=== PATIENT | female | born 1980 | race Caucasian/White ===

== ENCOUNTER 2024-11-24 08:00 | Emergency (ER) | payer MEDICAID ==
[~2024-11-24] VITALS: Ht 162.6 cm; Wt 81.0 kg
[2024-11-24 08:06] VITALS: BP 189/87; TEMP 36.9; O2SAT 100
[2024-11-24 08:07] VITALS: PULSE 86; RESP 18; O2SAT 99
[2024-11-24 08:39] LABS: CLARITY URINE CLOUDY (CLEAR); COLOR URINE YELLOW (YELLOW); GLUCOSE URINE NEGATIVE (NEGATIVE); KETONES URINE TRACE (NEGATIVE); OCCULT BLOOD URINE 1+ (NEGATIVE); PH URINE 6.5 (4.5-8.0); PROTEIN URINE TRACE (NEGATIVE); SPECIFIC GRAVITY URINE 1.024 (1.005-1.030)
[2024-11-24 08:40] LABS: LEUKOCYTE ESTERASE URINE 3+ (NEGATIVE); NITRITE URINE POSITIVE (NEGATIVE); UROBILINOGEN URINE 1.0 E.U./dL (0.2-1.0)
[2024-11-24 08:54] LABS: SQUAMOUS EPITHELIAL CELL URINE 2+ /lpf (RARE/1+); WBC URINE TNTC /hpf (0-2)
[2024-11-24 08:55] LABS: BACTERIA URINE 4+
[2024-11-24] MEDS ORDERED: CEPH500C2 MT (08:55)
[2024-11-24] MEDS: PHENAZOPYRIDINE HCL 100MG TABLET PO ONE (09:11)
[2024-11-24] MEDS: CEPHALEXIN 250MG CAPSULE PO ONE (09:11)
== END 2024-11-24 09:17 | disposition home or self-care (01) ==
LOC: ER 08:00
DX: N39.0 Urinary tract infection, site not specified (principal); I10 Essential (primary) hypertension; Z88.2 Allergy status to sulfonamides; Z88.1 Allergy status to other antibiotic agents
CPT/HCPCS: 81003; 81025; 87077; 87186; 99283

== ENCOUNTER 2025-01-25 14:09 | Emergency (ER) | payer MEDICAID, BC ==
[~2025-01-25] VITALS: Ht 162.6 cm; Wt 84.0 kg
[~2025-01-25 14:09] MED LIST: CEPH500C2 MT
[2025-01-25 14:40] VITALS: O2SAT 99
[2025-01-25 15:09] LABS: CLARITY URINE CLEAR (CLEAR); COLOR URINE YELLOW (YELLOW); GLUCOSE URINE NEGATIVE (NEGATIVE); KETONES URINE TRACE (NEGATIVE); LEUKOCYTE ESTERASE URINE 2+ (NEGATIVE); NITRITE URINE NEGATIVE (NEGATIVE); OCCULT BLOOD URINE NEGATIVE (NEGATIVE); PH URINE 6.0 (4.5-8.0); PROTEIN URINE NEGATIVE (NEGATIVE); SPECIFIC GRAVITY URINE 1.026 (1.005-1.030); UROBILINOGEN URINE 1.0 E.U./dL (0.2-1.0)
[2025-01-25 15:43] LABS: BASOPHILS % 0.8 % (0.0-2.0); EOSINOPHILS % 2.0 % (0.0-5.0); HEMATOCRIT. 26.8 % (36.0-48.0); HEMOGLOBIN. 7.5 g/dL (12.0-16.0); LYMPHOCYTES % 26.8 % (20.0-50.0); MEAN PLATELET VOLUME 8.8 fl (7.4-10.4); MONOCYTES % 5.8 % (2.0-8.0); NEUTROPHILS % 64.6 % (40.0-76.0); PLATELET 331 x1000/uL (130-400); RED BLOOD CELL COUNT 4.57 mill/uL (4.2-5.4); RED CELL DISTRIBUTION WIDTH 20.2 % (11.6-14.6)
[2025-01-25 15:45] LABS: ADD RBC MORPHOLOGY YES
[2025-01-25 15:57] LABS: CREATININE 0.9 mg/dL (0.6-1.0); UREA NITROGEN BLOOD 9 mg/dL (9-23)
[2025-01-25 15:57] LABS: HCG SCREEN NEGATIVE
[2025-01-25 16:00] LABS: SQUAMOUS EPITHELIAL CELL URINE 1+ /lpf (RARE/1+)
[2025-01-25 16:01] LABS: RBC URINE 0-2 /hpf (0-2)
[2025-01-25 16:02] LABS: BACTERIA URINE 1+; YEAST URINE NONE SEEN
[2025-01-25 16:13] LABS: PLATELET ESTIMATE NORMAL
[2025-01-25] MEDS ORDERED: CEPH500C2 MT (16:23)
[2025-01-25] MEDS ORDERED: CLIN-194 MT (16:33)
[2025-01-25 16:38] VITALS: BP 148/90; PULSE 89; RESP 20; TEMP 36.8; O2SAT 98
== END 2025-01-25 16:40 | disposition home or self-care (01) ==
LOC: ER 14:40
DX: N39.0 Urinary tract infection, site not specified (principal); I10 Essential (primary) hypertension; Z88.2 Allergy status to sulfonamides; Z88.1 Allergy status to other antibiotic agents
CPT/HCPCS: 36415; 80048; 81003; 84703; 85025; 99283